=== PATIENT | female | born 1985 | race Two or more races ===

== ENCOUNTER 2023-03-23 11:09 | Emergency (ER) | payer MEDICAID, OTHER ==
[~2023-03-23] VITALS: Ht 157.5 cm; Wt 109.0 kg
[2023-03-23] MEDS ORDERED: NOREPINEPHRINE 8 MG/250ML KIT 0 ML IV ONE (11:47)
[2023-03-23 16:42] VITALS: BP 135/90; PULSE 72; RESP 16; TEMP 99.1; O2SAT 98
== END 2023-03-23 16:44 | disposition home or self-care (01) ==
LOC: ER 11:09 → EDBD 11:09 → ER 16:44
DX: R20.0 Anesthesia of skin (principal); R51.9 Headache, unspecified; R42 Dizziness and giddiness; E11.9 Type 2 diabetes mellitus without complications; Z98.51 Tubal ligation status
CPT/HCPCS: 70450